=== PATIENT | female | born 2000 | race African-American/Black ===

== ENCOUNTER 2022-10-04 09:04 | Outpatient (CLI) | payer BC | END 2022-10-04 09:05 | disposition home or self-care (01) | LOC: BICULT 09:04 | PROVIDERS: ATTEND Internal Medicine | DX: K59.00 Constipation, unspecified (principal); R10.13 Epigastric pain; R19.5 Other fecal abnormalities; K80.20 Calculus of gallbladder without cholecystitis without obstruction | CPT/HCPCS: 76700 ==